=== PATIENT | female | born 1955 | race Asian ===

== ENCOUNTER 2017-12-28 16:45 | Emergency (ER) | payer OTHER ==
[~2017-12-28] VITALS: Ht 149.9 cm; Wt 47.7 kg
[2017-12-28] MEDS ORDERED: BECL10.6 IH (17:09)
[2017-12-28] MEDS ORDERED: FAMO20 PO (17:09)
[2017-12-28] MEDS ORDERED: ASPI-556 PO (17:09)
[2017-12-28] MEDS ORDERED: ESCI10TA PO (17:09)
[2017-12-28] MEDS ORDERED: MONT10TA21 PO (17:09)
[2017-12-28 17:44] LABS: BASOPHILS % (AUTO) 0.9 % (0.0-2.0); EOSINOPHILS % (AUTO) 1.9 % (1.0-6.0); HEMATOCRIT 37.6 % (36-46); HEMOGLOBIN 12.7 g/dL (12.0-16.0); LYMPHOCYTES # (AUTO) 1.7 K/uL (1.0-4.8); LYMPHOCYTES % (AUTO) 26.9 % (22.0-44.0); MEAN CORPUSCULAR HEMOGLOBIN 29.7 pg (26.0-34.0); MEAN CORPUSCULAR HGB CONC 33.9 G/dL (31.0-37.0); MEAN CORPUSCULAR VOLUME 88 fL (80-100); MONOCYTES # (AUTO) 0.5 K/uL (0.1-1.0); MONOCYTES % (AUTO) 7.9 % (2.0-9.0); NEUTROPHILS % (AUTO) 62.4 % (40.0-70.0); PLATELET COUNT (AUTO) 306 K/uL (150-450); RED BLOOD CELL COUNT(AUTO) 4.28 MIL/uL (4.00-5.20); RED CELL DISTRIBUTION WIDTH 12.8 % (11.5-14.5)
[2017-12-28 18:10] LABS: ANION GAP 11 mmol/L (8-16); CALCIUM, TOTAL 9.3 mg/dL (8.8-10.5); CARBON DIOXIDE 28 mmol/L (22-29); CHLORIDE 102 mmol/L (98-107); CREATININE 0.86 mg/dL (0.60-1.30); GLOMERULAR FILTR. RATE CALC > 60 mL/min (>60); GLUCOSE,RANDOM 125 mg/dL (70-110); POTASSIUM 3.8 mmol/L (3.5-5.1); SODIUM SERUM 141 mmol/L (136-145); UREA NITROGEN, BLOOD 15 mg/dL (7-18)
[2017-12-28 18:17] LABS: ALANINE AMINOTRANSFERASE 25 U/L (12-78); ALBUMIN 4.2 g/dL (3.4-5.0); ALKALINE PHOSPHATASE 57 U/L (46-116); ASPARTATE AMINOTRANSFERASE 20 U/L (15-37); BILIRUBIN,TOTAL 0.4 mg/dL (0.1-1.0); LIPASE 173 U/L (73-393); TOTAL PROTEIN, SERUM 7.9 g/dL (6.4-8.2)
[2017-12-28] MEDS ORDERED: PB/HYOSCY/ATR/SCOP/LIDO/MAALOX 55 ML BOTTLE PO ONE (19:15)
[2017-12-28 19:46] VITALS: BP 127/68
[2017-12-28 20:44] LABS: APPEARANCE,URINE CLEAR (CLEAR); BILIRUBIN,URINE NEGATIVE (NEGATIVE); GLUCOSE, URINE (UA) NEGATIVE (NEGATIVE); KETONES,URINE NEGATIVE (NEGATIVE); LEUKOCYTE ESTERASE ,URINE TRACE (NEGATIVE); NITRATE,URINE NEGATIVE (NEGATIVE); OCCULT BLOOD,URINE NEGATIVE (NEGATIVE); PROTEIN,URINE NEGATIVE (NEGATIVE); UROBILINOGEN,URINE 0.2 mg/dL (<=1.0)
[2017-12-28 20:49] LABS: BACTERIA,URINE Rare /HPF (None Seen); RBC,URINE 0-2 /HPF (0-2); SQUAMOUS EPITHELIAL CELL,UR Few /LPF (None Seen)
== END 2017-12-28 19:51 | disposition home or self-care (01) ==
LOC: EMS 16:46
DX: R10.13 Epigastric pain (principal); R07.9 Chest pain, unspecified; I10 Essential (primary) hypertension; Z79.82 Long term (current) use of aspirin
CPT/HCPCS: 93005

== ENCOUNTER 2023-01-05 10:20 | Emergency (ER) | payer MEDICARE, OTHER ==
[~2023-01-05] VITALS: Ht 149.9 cm; Wt 50.0 kg
[~2023-01-05 10:20] MED LIST: ASPI-556 PO; BECL10.6 IH; ESCI-8 PO; FAMO20 PO; MONT-35 PO
[2023-01-05 10:24] VITALS: TEMP 99.2
[2023-01-05] MEDS ORDERED: ATEN-73 PO (10:29)
[2023-01-05] MEDS ORDERED: ATOR20TA65 PO (10:29)
[2023-01-05] MEDS ORDERED: ASPI-1444 PO (10:29)
[2023-01-05] MEDS ORDERED: DICL100G60 TP (10:29)
[2023-01-05] MEDS ORDERED: ALEN70TA80 PO (10:29)
[2023-01-05] MEDS ORDERED: MAGN400T25 PO (10:29)
[2023-01-05] MEDS ORDERED: FAMO20TA8 PO (12:29)
[2023-01-05] MEDS ORDERED: METF-1211 PO (12:30)
[2023-01-05] MEDS ORDERED: ACETAMINOPHEN 325 MG TABLET PO ONE (12:30)
[2023-01-05] MEDS ORDERED: BACLOFEN 10 MG TABLET PO ONE (12:30)
[2023-01-05] MEDS ORDERED: LIDOCAINE 5% TRANSDERMAL PATCH TD ONE (12:30)
[2023-01-05] MEDS ORDERED: BACL10TA PO (13:21)
[2023-01-05] MEDS ORDERED: ACET-3385 PO (13:21)
[2023-01-05 14:03] VITALS: BP 149/93; PULSE 82; RESP 18
== END 2023-01-05 14:09 | disposition home or self-care (01) ==
LOC: EMS 10:23
DX: M54.32 Sciatica, left side (principal); I10 Essential (primary) hypertension
CPT/HCPCS: 72100; 99283

== ENCOUNTER 2023-01-11 15:32 | Emergency (ER) | payer MEDICARE, OTHER ==
[~2023-01-11] VITALS: Ht 149.9 cm; Wt 54.5 kg
[~2023-01-11 15:32] MED LIST changes: +ACET-3385 PO; +ALEN70TA80 PO; +ASPI-1444 PO; -ASPI-556 PO; +ATEN-73 PO; +ATOR20TA65 PO; +BACL10TA PO; +DICL100G60 TP; +FAMO20TA8 PO; +MAGN400T25 PO; +METF-1211 PO; -MONT-35 PO
[2023-01-11 15:33] VITALS: TEMP 97.9
[2023-01-11 15:37] VITALS: BP 114/77; PULSE 88; RESP 18
[2023-01-11] MEDS ORDERED: GABA-1216 PO (15:44)
== END 2023-01-11 16:00 | disposition home or self-care (01) ==
LOC: EMS 15:52
DX: M54.30 Sciatica, unspecified side (principal); I10 Essential (primary) hypertension; Z76.0 Encounter for issue of repeat prescription
CPT/HCPCS: 99283

== ENCOUNTER 2023-09-22 19:39 | Emergency (ER) | payer MEDICARE, OTHER ==
[~2023-09-22] VITALS: Ht 154.9 cm; Wt 50.0 kg
[~2023-09-22 19:39] MED LIST changes: +GABA-1216 PO
[2023-09-22 19:58] VITALS: TEMP 98.6
[2023-09-22 20:11] LABS: GLUCOMETER DEV NAME(LOC) ERT.5; GLUCOSE,POINT OF CARE 120 MG/DL (70-110)
[2023-09-22 20:40] LABS: BASOPHILS % (AUTO) 0.2 % (0.0-2.0); EOSINOPHILS % (AUTO) 0.9 % (1.0-6.0); HEMATOCRIT 34.6 % (36-46); HEMOGLOBIN 11.6 g/dL (12.0-16.0); LYMPHOCYTES # (AUTO) 1.6 K/uL (1.0-4.8); LYMPHOCYTES % (AUTO) 19.3 % (22.0-44.0); MEAN CORPUSCULAR HEMOGLOBIN 30.2 pg (26.0-34.0); MEAN CORPUSCULAR HGB CONC 33.6 G/dL (31.0-37.0); MEAN CORPUSCULAR VOLUME 90 fL (80-100); MONOCYTES # (AUTO) 0.6 K/uL (0.1-1.0); MONOCYTES % (AUTO) 7.1 % (2.0-9.0); NEUTROPHILS % (AUTO) 72.5 % (40.0-70.0); PLATELET COUNT (AUTO) 307 K/uL (150-450); RED BLOOD CELL COUNT(AUTO) 3.85 MIL/uL (4.00-5.20); WHITE BLOOD COUNT (AUTO) 8.2 K/uL (4.5-11.0)
[2023-09-22 20:47] LABS: ANION GAP 5 mmol/L (8-16); CALCIUM, TOTAL 9.8 mg/dL (8.8-10.5); CARBON DIOXIDE 32 mmol/L (22-29); CHLORIDE 104 mmol/L (98-107); CREATININE 0.76 mg/dL (0.60-1.30); GLOMERULAR FILTR. RATE CALC > 60 mL/min (>60); GLUCOSE,RANDOM 103 mg/dL (70-110); POTASSIUM 3.7 mmol/L (3.5-5.1); SODIUM SERUM 141 mmol/L (136-145); UREA NITROGEN, BLOOD 17 mg/dL (7-18)
[2023-09-22 20:54] LABS: ALANINE AMINOTRANSFERASE 77 U/L (12-78); ALBUMIN 3.9 g/dL (3.4-5.0); ALKALINE PHOSPHATASE 49 U/L (46-116); ASPARTATE AMINOTRANSFERASE 77 U/L (15-37); BILIRUBIN,TOTAL 0.6 mg/dL (0.1-1.0); TOTAL PROTEIN, SERUM 7.3 g/dL (6.4-8.2); TROPONIN I-HIGH SENSITIVITY 4 ng/L (<51)
[2023-09-22 21:06] LABS: APPEARANCE,URINE CLEAR (CLEAR); BILIRUBIN,URINE NEGATIVE (NEGATIVE); COLOR,URINE COLORLESS (YELLOW); GLUCOSE, URINE (UA) NEGATIVE (NEGATIVE); KETONES,URINE NEGATIVE (NEGATIVE); LEUKOCYTE ESTERASE ,URINE NEGATIVE (NEGATIVE); NITRATE,URINE NEGATIVE (NEGATIVE); OCCULT BLOOD,URINE NEGATIVE (NEGATIVE); PROTEIN,URINE NEGATIVE (NEGATIVE); SPECIFIC GRAVITIY, URINE 1.007 (1.003-1.030); UROBILINOGEN,URINE <=1.0 mg/dL (<=1.0)
[2023-09-22] MEDS: SODIUM CHLORIDE 0.9% 1,000 ML IV ONE (21:25)
[2023-09-22 22:11] VITALS: BP 152/86; PULSE 90; RESP 16
== END 2023-09-22 22:31 | disposition home or self-care (01) ==
LOC: EMS 19:40
DX: R42 Dizziness and giddiness (principal); E11.9 Type 2 diabetes mellitus without complications; I10 Essential (primary) hypertension
CPT/HCPCS: 99285; 96360; 71045; 80053; 81003; 82962; 84484; 85025; 36415; 93005; J7030